=== PATIENT | female | born 1930 | race Caucasian/White ===

== ENCOUNTER 2017-01-26 11:45 | Emergency (ER) | payer MEDICARE, BC ==
--- NOTE | 2017-01-26 12:38 | EDM.PDOC ---
ED HPI GENERAL MEDICAL PROBLEM - General Chief Complaint: Head Injury Stated Complaint: FALL Time Seen by Provider: 01/26/17 12:37 Source of Information: Reports: Patient - History of Present Illness INITIAL COMMENTS - FREE TEXT/NARRATIVE: HISTORY AND PHYSICAL: History of present illness: Irma slipped and fell on a patch of ice striking her left temporal area on the sidewalk she has a large contusion/bruise on the left temporal area she is not on blood thinners denies loss of consciousness No fever nausea vomiting chills sweats [] Review of systems: As per history of present illness and below otherwise all systems reviewed and negative. Past medical history: As per history of present illness and as reviewed below otherwise noncontributory. Surgical history: As per history of present illness and as reviewed below otherwise noncontributory. Social history: No reported history of drug or alcohol abuse. Family history: As per history of present illness and as reviewed below otherwise noncontributory. Physical exam: HEENT: Atraumatic, normocephalic, pupils reactive, negative for conjunctival pallor or scleral icterus, mucous membranes moist, throat clear, neck supple, nontender, trachea midline. Lungs: Clear to auscultation, breath sounds equal bilaterally, chest nontender. Heart: S1S2, regular, negative for clicks, rubs, or JVD. Abdomen: Soft, nondistended, nontender. Negative for masses or hepatosplenomegaly. Negative for costovertebral tenderness. Pelvis: Stable nontender. Genitourinary: Deferred. Rectal: Deferred. Extremities: Atraumatic, negative for cords or calf pain. Neurovascular unremarkable. Neuro: Awake, alert, oriented. Cranial nerves II through XII unremarkable. Cerebellum unremarkable. Motor and sensory unremarkable throughout. Exam nonfocal. Skin abrasion/puncture wound right hyperthenar eminence Diagnostics: []Head CT no contrast Cervical spine no contrast Pelvis one view Right wrist 2 views Therapeutics: []Tetanus status is updated Wrist splint for comfort/thumb spica Impression: [Contusion left temporal area] Contusion muscle spasm left anterior thigh Puncture wound right hyperthenar eminence Definitive disposition and diagnosis as appropriate pending reevaluation and review of above. head Pain Score (Numeric/FACES): 5 - Related Data Allergies Allergy/AdvReac Type Severity Reaction Status Date / Time Penicillins Allergy Rash Verified 01/26/17 12:07 Sulfa (Sulfonamide Allergy Cannot Verified 01/26/17 12:07 Antibiotics) Remember Past Medical History HEENT History: Reports: Cataract Cardiovascular History: Reports: Hypertension, MS Endocrine/Metabolic History: Reports: Diabetes, Type II - Past Surgical History HEENT Surgical History: Reports: Cataract Surgery, Tonsillectomy GI Surgical History: Reports: Appendectomy Female Surgical History: Reports: Hysterectomy Social & Family History - Family History Family Medical History: Noncontributory - Tobacco Use Smoking Status *Q: Never Smoker - Recreational Drug Use Recreational Drug Use: No ED ROS GENERAL - Review of Systems Review Of Systems: ROS reveals no pertinent complaints other than HPI. ED EXAM, HEAD INJURY - Physical Exam Exam: See Below Course - Vital Signs Last Recorded V/S: Last Vital Signs Temp 97.0 F 01/26/17 12:08 Pulse 60 01/26/17 12:08 Resp 18 01/26/17 12:08 BP 164/72 H 01/26/17 12:08 Pulse Ox 94 L 01/26/17 12:08 - Orders/Labs/Meds Orders: Active Orders 24 hr Category Date Time Status Vaccines to be Administered [RC] PER UNIT ROUTINE Care 01/26/17 13:26 Active Pelvis 1V or 2V [CR] Stat Exams 01/26/17 13:26 Taken Meds: Medications Discontinued Medications Generic Name Dose Route Start Last Admin Trade Name Ashleigh PRN Reason Stop Dose Admin Bacitracin 1 dose 01/26/17 14:00 Bacitracin Oint 1 Gm TOP 01/26/17 14:01 ONETIME ONE Diphtheria/Tetanus/Acell Pertussis 0.5 ml 01/26/17 13:26 01/26/17 13:53 Adacel IM 01/26/17 13:27 0.5 ml .ONCE ONE Administration Departure - Departure Time of Disposition: 14:13 Disposition: Home, Self-Care 01 Condition: Good Clinical Impression: Contusion, Puncture wound, Muscle spasm - Discharge Information Referrals: PCP,None [Primary Care Provider] - Forms: ED Department Discharge Additional Instructions: Rest Ice 20 minute intervals 3 times daily 7-10 days Tylenol 650 mg by mouth every 6 hours as needed 7-10 days Standard wound care instruction Bacitracin Telfa dressing Thumb spica right wrist Follow-up with primary care 2 weeks sooner as needed As patient has going to be admitted to [facility] possibly today or tomorrow she can follow with her provider at [facility] The following information is given to patients seen in the emergency department who are being discharged to home. This information is to outline your options for follow-up care. We provide all patients seen in our emergency department with a follow-up referral. The need for follow-up, as well as the timing and circumstances, are variable depending upon the specifics of your emergency department visit. If you don't have a primary care physician on staff, we will provide you with a referral. We always advise you to contact your personal physician following an emergency department visit to inform them of the circumstance of the visit and for follow-up with them and/or the need for any referrals to a consulting specialist. The emergency department will also refer you to a specialist when appropriate. This referral assures that you have the opportunity for follow-up care with a specialist. All of these measure are taken in an effort to provide you with optimal care, which includes your follow-up. Under all circumstances we always encourage you to contact your private physician who remains a resource for coordinating your care. When calling for follow-up care, please make the office aware that this follow-up is from your recent emergency room visit. If for any reason you are refused follow-up, please contact the [facility] emergency department at and asked to speak to the emergency department charge nurse. - My Orders Last 24 Hours: My Active Orders 01/26/17 13:26 Vaccines to be Administered [RC] PER UNIT ROUTINE Pelvis 1V or 2V [CR] Stat - Assessment/Plan Last 24 Hours: My Active Orders 01/26/17 13:26 Vaccines to be Administered [RC] PER UNIT ROUTINE Pelvis 1V or 2V [CR] Stat
--- NOTE | 2017-01-26 12:56 | CT ---
EXAMINATION: Non contrast CT head. Coronal and sagittal reformats. HISTORY: Pain FINDINGS: No evidence of intra or extra axial hemorrhage, mass, midline shift, hydrocephalus or edema. There i s generalized atrophy and moderate periventricular and subcortical white matter small vessel ischemic changes. No hypoattenuation changes in the major vascular territories to suggest acute infarct. No abnormal i ntracranial calcifications are detected. No evidence of substantial vascular calcifications. There is mucosal thickening within the right maxillary sinus with an air-fluid level. No definite fra cture. The pituitary fossa appears unremarkable. There is a subcutaneous hematoma noted overlying th e left anterior temporal region. Calvarium is intact. No evidence of skull fracture. IMPRESSION: 1. No acute intracranial findings. 2. Subcutaneous hematoma overlying the left frontal/temporal region. 3. Moderate small vessel ischemic changes and generalized atrophy. 4. Right maxillary sinus disease, correlate for sinusitis.
--- NOTE | 2017-01-26 13:08 | CT ---
EXAMINATION: CT cervical spine HISTORY: Pain COMPARISON: None TECHNIQUE: Axial CT images obtained through the cervical spine without contrast. Coronal and sagittal reconstructions obtained. FINDINGS: The cervical spinal alignment is normal. The vertebral body heights appear maintained. Disc space narrowing is noted from C3 to C7. Mild marginal osteophytes and osteophyte disc complex noted at these levels. No fracture or acute osseous abnormality. Bone mineralization is normal to mildly os teopenic. Degenerative changes are noted within the temporomandibular joints. The paravertebral soft tissues appear normal. Scarring is noted within the lung apices. Mild carotid artery calcifications. IMPRESSION: 1. Degenerative changes without acute findings.
[2017-01-26] MEDS ORDERED: Diphtheria,Pertussis(Acell),Tetanus Vaccine 0.5 ML Syringe IM ONE (13:26)
[2017-01-26] MEDS ORDERED: Bacitracin Oint 1 GM U/D Packet TOP ONE (14:00)
--- NOTE | 2017-01-26 14:04 | CR ---
EXAMINATION: Right wrist HISTORY: Pain COMPARISON: None TECHNIQUE: 2 views FINDINGS: There is no acute osseous abnormality, dislocation, or fracture. There is mild widening of the scapholunate interval. Mild degenerative changes noted at the distal radial ulnar joint. Osseous structures appear osteopenic. Mild first CMC arthritic changes. IMPRESSION: 1. No acute osseous abnormality. 2. Widening of the scapholunate interval suggesting underlying ligamentous injury. 3. Mild degenerative changes.
--- NOTE | 2017-01-26 14:21 | CR ---
EXAMINATION: Pelvis HISTORY: Pain COMPARISON: None TECHNIQUE: AP view FINDINGS: There is no acute osseous abnormality, dislocation, or fracture. Moderate degenerative arely nges noted within the lower lumbar spine. Joint spaces within the hips appear grossly preserved. SI j oints are symmetric. Bone mineralization appears normal. The iliopectineal and ilioischial lines are intact. IMPRESSION: 1. No acute osseous abnormalities identified.
== END 2017-01-26 14:43 | disposition home or self-care (01) ==
LOC: MW.ED 11:45
DX: S61.431A Puncture wound without foreign body of right hand, initial encounter (principal); S00.83XA Contusion of other part of head, initial encounter; S70.12XA Contusion of left thigh, initial encounter; I10 Essential (primary) hypertension; E11.9 Type 2 diabetes mellitus without complications; M62.838 Other muscle spasm; Z88.0 Allergy status to penicillin; Z23 Encounter for immunization; Z88.2 Allergy status to sulfonamides; W00.0XXA Fall on same level due to ice and snow, initial encounter
CPT/HCPCS: 29125; 70450; 70450-26; 72125; 72125-26; 72170; 72170-26; 73100-26-RT; 73100-RT; 90471; 90715; 99283; 99283-25